=== PATIENT | female | born 1990 | race Two or more races ===

== ENCOUNTER 2017-06-29 20:12 | Emergency (ER) | payer BC, MEDICAID ==
[~2017-06-29] VITALS: Ht 165.1 cm; Wt 69.0 kg
[2017-06-30 01:26] VITALS: BP 119/85
== END 2017-06-30 01:46 | disposition home or self-care (01) ==
LOC: ER 20:12
DX: R53.1 Weakness (principal); R20.2 Paresthesia of skin; F12.10 Cannabis abuse, uncomplicated
CPT/HCPCS: 99281; 99282

== ENCOUNTER 2018-09-02 12:41 | Emergency (ER) | payer BC, MEDICAID ==
[~2018-09-02] VITALS: Ht 165.1 cm; Wt 97.5 kg
[2018-09-02 14:29] LABS: CLARITY URINE CLEAR (CLEAR); COLOR URINE YELLOW (YELLOW); KETONES URINE NEGATIVE (NEGATIVE); LEUKOCYTE ESTERASE URINE NEGATIVE (NEGATIVE); NITRITE URINE NEGATIVE (NEGATIVE); OCCULT BLOOD URINE NEGATIVE (NEGATIVE); PROTEIN URINE NEGATIVE (NEGATIVE); SPECIFIC GRAVITY URINE 1.007 (1.005-1.030); UROBILINOGEN URINE 0.2 E.U./dL (0.2-1.0)
[2018-09-02 15:11] LABS: CHLORIDE 106 mEq/L (98-107)
[2018-09-02 15:23] LABS: BASOPHILS % 0.6 % (0.0-2.0); EOSINOPHILS % 0.9 % (0.0-5.0); HEMATOCRIT. 37.9 % (36.0-48.0); HEMOGLOBIN. 12.8 g/dL (12.0-16.0); LYMPHOCYTES % 24.6 % (20.0-50.0); MEAN CORPUSCULAR HEMOGLOBIN 30.3 pg (28.0-32.0); MEAN CORPUSCULAR VOLUME 89.5 fL (81.0-99.0); MEAN PLATELET VOLUME 8.9 fl (7.4-10.4); NEUTROPHILS % 69.9 % (40.0-76.0); PLATELET 312 x1000/uL (130-400); RED BLOOD CELL COUNT 4.23 mill/uL (4.2-5.4); RED CELL DISTRIBUTION WIDTH 13.3 % (11.6-14.6)
[2018-09-02 15:35] LABS: B-HCG QUANTITATIVE 13922 mIU/mL (<3)
[2018-09-02 17:00] VITALS: BP 115/62
== END 2018-09-02 17:17 | disposition home or self-care (01) ==
LOC: ER 12:41
DX: O26.892 Other specified pregnancy related conditions, second trimester (principal); Z3A.15 15 weeks gestation of pregnancy; Z98.890 Other specified postprocedural states
CPT/HCPCS: 36415; 76805; 81025; 84702; 86850; 86900; 99284